=== PATIENT | female | born 1975 | race Caucasian/White ===

== ENCOUNTER 2017-01-28 17:55 | Emergency (ER) | payer OTHER ==
--- NOTE | 2017-01-28 18:04 | PDOC ---
Rapid Medical Evaluation Time Seen by Provider: 01/28/17 18:01 Medical Evaluation: Allergies Allergy/AdvReac Type Severity Reaction Status Date / Time No Known Allergies Allergy Verified 01/28/17 18:01 01/28/17 18:01 I have performed a brief in-person evaluation of this patient. The patient presents with a chief complaint of: Fever w/ body aches and dysuria x 5 days. Received 1 dose of ceftriaxone yesterday by Dr Carty and sent home w / cipro but unable to tolerate meds 2/2 n/v. H/o recurrent UTIs, pyelo (decker- sensitive ucx in 2015 on chart review) Pertinent physical exam findings:Febrile w/ ?R CVAT I have ordered the following: cbc/chem/ua/ucx/bld cx/serum preg/tylenol The patient will proceed to the ED for further evaluation. 01/28/17 18:05
[2017-01-28] MEDS ORDERED: ACETAMINOPHEN 325 MG TABLET (FP) PO ONE (18:05)
[2017-01-28 18:06] VITALS: BP 109/68; PULSE 112; TEMP 101.7; BMI 22.4
[2017-01-28] MEDS ORDERED: ACETAMINOPHEN 325 MG TABLET (FP) ONE (18:27)
[2017-01-28 18:47] LABS: URINE APPEARANCE CLEAR; URINE BILIRUBIN NEGATIVE (NEGATIVE); URINE BLOOD 3+ (NEGATIVE); URINE COLOR LTYELLOW; URINE GLUCOSE (UA) NEGATIVE (NEGATIVE); URINE KETONE 1+ (NEGATIVE); URINE NITRITE NEGATIVE (NEGATIVE); URINE UROBILINOGEN NEGATIVE mg/dL (0.2-1.0)
[2017-01-28 18:48] LABS: URINE MUCUS RARE; URINE PROTEIN 1+ (NEGATIVE); URINE RBC 6 /hpf (0-3); URINE WBC 5 /hpf (3-5)
[2017-01-28] MEDS ORDERED: SODIUM CHLORIDE 1,000 ML IV STA (18:58)
[2017-01-28] MEDS ORDERED: ONDANSETRON 4 MG/2 ML VIAL IVPUSH ONE (18:58)
--- NOTE | 2017-01-28 19:07 | PDOC ---
History of Present Illness - History of Present Illness Initial Comments: 01/28/17 19:21 The patient is a 41 year old female, with a significant past medical history of UTIs, who presents to the emergency department with fever, nausea, vomiting since this morning. Patient was experiencing painful urination for 5 days. She saw her PCP yesterday who gave her anitbiotics. She came in today because she has been experiencing fever and vomit. LMP 01/16/17. She denies recent fevers, chills, headache or dizziness. She denies recent nausea, vomit, diarrhea or constipation. She denies recent dysuria, frequency, urgency or hematuria. She denies recent chest pain or shortness of breath. Allergies: NKA Past surgical history: 2 c-sections, appendectomy Social history: Nonsmoker. Denies EtOH use and recreational drug use. Primary Care Physician: Dr. Papito Carty <Yaneli Johnson - Last Filed: 01/28/17 19:21> <Sade Hunter - Last Filed: 01/28/17 21:25> - General Chief Complaint: SIRS, Suspected/Possible Stated Complaint: FEVER/VOMITING Time Seen by Provider: 01/28/17 18:01 Past History <Yaneli Johnson - Last Filed: 01/28/17 19:21> - Past Medical History Anemia: No Asthma: No Cancer: No Cardiac Disorders: No CVA: No COPD: No CHF: No DVT: No Dementia: No Diabetes: No GI Disorders: Yes (ulcer) Disorders: Yes (recurrent UTI,pyelonephritis) HTN: No Hypercholesterolemia: No Liver Disease: No Seizures: No Thyroid Disease: No - Surgical History Abdominal Surgery: No Appendectomy: Yes Cardiac Surgery: No Cholecystectomy: No Lung Surgery: No Neurologic Surgery: No Orthopedic Surgery: No - Suicide/Smoking/Psychosocial Hx Smoking History: Never smoked Have you smoked in the past 12 months: No Information on smoking cessation initiated: No Hx Alcohol Use: No Drug/Substance Use Hx: No Substance Use Type: None Hx Substance Use Treatment: No <Sade Hunter - Last Filed: 01/28/17 21:25> - Past Medical History Allergies/Adverse Reactions: Allergies Allergy/AdvReac Type Severity Reaction Status Date / Time No Known Allergies Allergy Verified 01/28/17 18:01 Home Medications: Ambulatory Orders Ondansetron [Zofran *Odt*] 8 mg SL BID PRN #14 od.tablet 01/28/17 Review of Systems - Review of Systems Comments:: 01/28/17 19:21 CONSTITUTIONAL: Present: fever Absent: fever, no chills, no fatigue EYES: Absent: visual changes ENT: Absent: ear pain, no sore throat CARDIOVASCULAR: Absent: chest pain, no palpitations RESPIRATORY: Absent: cough, no SOB GI: Present: nausea, vomit, flank pain. Absent: abdominal pain, no constipation, no diarrhea GENITOURINARY: Absent: dysuria, no frequency, no hematuria MUSCULOSKELETAL: Absent: back pain, no arthralgia, no myalgia SKIN: Absent: rash NEURO: Absent: headache <Yaneli Johnson - Last Filed: 01/28/17 19:21> *Physical Exam - Vital Signs Last Vital Signs Temp Pulse Resp BP Pulse Ox 101.7 F H 112 H 18 109/68 100 01/28/17 18:01 01/28/17 18:01 01/28/17 18:01 01/28/17 18:01 01/28/17 18:01 - Physical Exam Comments: 01/28/17 19:22 GENERAL: Well-appearing, well-nourished. No apparent distress. HEENT: Normocephalic, atraumatic. PERRL, EOM intact. CARDIOVASCULAR: Normal S1, S2. Regular rate and rhythm. PULMONARY: Clear to auscultation bilaterally. BACK: Right CVA tenderness. ABDOMEN: Soft, non-distended, non-tender. EXTREMITIES: Normal ROM in all four extremities. No gross deformities. SKIN: Warm, dry. No rash NEUROLOGICAL: No focal neurological deficits. <Yaneli Johnson - Last Filed: 01/28/17 19:21> - Vital Signs Last Vital Signs Temp Pulse Resp BP Pulse Ox 101.7 F H 112 H 18 109/68 100 01/28/17 18:01 01/28/17 18:01 01/28/17 18:01 01/28/17 18:01 01/28/17 18:01 <Sade Hunter - Last Filed: 01/28/17 21:25> ED Treatment Course - LABORATORY CBC & Chemistry Diagram: 01/28/17 19:05 01/28/17 18:20 - ADDITIONAL ORDERS Additional order review: Laboratory Results 01/28/17 01/28/17 18:39 18:20 Serum , Qual Negative Urine Color Ltyellow Urine Appearance Clear Urine pH 6.0 Ur Specific [place] 1.008 Urine Protein 1+ H Urine Glucose (UA) Negative Urine Ketones 1+ H Urine Blood 3+ H Urine Nitrite Negative Urine Bilirubin Negative Urine Urobilinogen Negative Urine WBC (Auto) 5 Urine RBC (Auto) 6 Ur Epithelial Cells Rare Urine Mucus Rare 01/28/17 01/28/17 19:05 18:20 RBC 4.04 Cancelled MCV 83.6 Cancelled MCHC 33.5 Cancelled RDW 13.8 Cancelled MPV 8.0 Cancelled Neutrophils % 81.9 D Cancelled Lymphocytes % 6.9 L D Cancelled Monocytes % 11.1 H Cancelled Eosinophils % 0.0 D Cancelled Basophils % 0.1 Cancelled - Medications Given in the ED: ED Medications Discontinued Medications Generic Name Dose Route Start Last Admin Trade Name Freq PRN Reason Stop Dose Admin Acetaminophen 650 mg 01/28/17 18:05 01/28/17 18:06 Tylenol - PO 01/28/17 18:06 650 mg ONCE ONE Administration <Yaneli Johnson - Last Filed: 01/28/17 19:21> - LABORATORY CBC & Chemistry Diagram: 01/28/17 19:05 01/28/17 18:20 - ADDITIONAL ORDERS Additional order review: Laboratory Results 01/28/17 01/28/17 18:39 18:20 Serum , Qual Negative Urine Color Ltyellow Urine Appearance Clear Urine pH 6.0 Ur Specific [place] 1.008 Urine Protein 1+ H Urine Glucose (UA) Negative Urine Ketones 1+ H Urine Blood 3+ H Urine Nitrite Negative Urine Bilirubin Negative Urine Urobilinogen Negative Urine WBC (Auto) 5 Urine RBC (Auto) 6 Ur Epithelial Cells Rare Urine Mucus Rare 01/28/17 18:20 RBC Cancelled MCV Cancelled MCHC Cancelled RDW Cancelled MPV Cancelled Neutrophils % Cancelled Lymphocytes % Cancelled Monocytes % Cancelled Eosinophils % Cancelled Basophils % Cancelled - Medications Given in the ED: ED Medications Discontinued Medications Generic Name Dose Route Start Last Admin Trade Name Freq PRN Reason Stop Dose Admin Acetaminophen 650 mg 01/28/17 18:05 01/28/17 18:06 Tylenol - PO 01/28/17 18:06 650 mg ONCE ONE Administration <Sade Hunter - Last Filed: 01/28/17 21:25> *DC/Admit/Observation/Transfer - Attestations Scribe Attestion: 01/28/17 19:23 Documentation prepared by Yaneli Johnson, acting as medical device sales for Sade Hunter MD. <Yaneli Johnson - Last Filed: 01/28/17 19:21> <Sade Hunter - Last Filed: 01/28/17 21:25> Diagnosis at time of Disposition: Pyelonephritis - Discharge Dispostion Disposition: HOME Condition at time of disposition: Stable - Prescriptions Prescriptions: Ondansetron [Zofran *Odt*] 8 mg SL BID PRN #14 od.tablet PRN Reason: Nausea And/Or Vomiting - Referrals Referrals: Papito Carty MD [Primary Care Provider] - - Patient Instructions Printed Discharge Instructions: DI for Kidney Infection Additional Instructions: Please continue to take all your antibiotics until done Please pick up attendant your prescriptions at the [facility] pharmacy Follow-up with your primary doctor Return for any worsening symptoms - Post Discharge Activity
[2017-01-28 19:08] LABS: ALBUMIN 3.1 g/dl (3.4-5.0); ANION GAP 10 (8-16); BILIRUBIN,TOTAL 0.3 mg/dL (0.2-1.0); CO2 24 mmol/L (21-32); CREATININE 0.9 mg/dL (0.55-1.02); GLUCOSE,RANDOM 106 mg/dL (74-106); SGOT/AST 32 U/L (15-37); SGPT/ALT 115 U/L (12-78)
[2017-01-28 19:09] LABS: ALK PHOS 135 U/L (45-117)
[2017-01-28 19:12] LABS: BASOPHIL 0.1 % (0-2.0); MCHC 33.5 g/dl (32.0-36.0); MEAN CELL VOLUME 83.6 fl (80-96); NEUTROPHILS 81.9 % (42.8-82.8); PLATELET COUNT 225 K/MM3 (134-434); RDW 13.8 % (11.6-15.6); WHITE BLOOD COUNT 10.7 K/mm3 (4.0-10.0)
[2017-01-28] MEDS ORDERED: METOCLOPRAMIDE HCL INJECTION 10 MG/2 ML VIAL ONE (19:16)
[2017-01-28] MEDS ORDERED: ONDANSETRON 4 MG/2 ML VIAL ONE (19:17)
[2017-01-28] MEDS ORDERED: METOCLOPRAMIDE HCL INJECTION 10 MG/2 ML VIAL IVPB STA (19:19)
[2017-01-28] MEDS ORDERED: LEVOFLOXACIN 500 MG IVPB 500 MG/100 ML BAG IVPB ONE ×2 (21:18→21:41)
[2017-01-28 22:39] LABS: URINE LEUK ESTERASE Negative (NEGATIVE)
== END 2017-01-28 22:03 | disposition home or self-care (01) ==
LOC: JER 17:55
PROC: 3E03329 Introduction of Other Anti-infective into Peripheral Vein, Percutaneous Approach (ICD-10-PCS; principal; 2017-01-28)
PROC: 3E033GC Introduction of Other Therapeutic Substance into Peripheral Vein, Percutaneous Approach (ICD-10-PCS; 2017-01-28)
PROC: 3E0337Z Introduction of Electrolytic and Water Balance Substance into Peripheral Vein, Percutaneous Approach (ICD-10-PCS; 2017-01-28)
DX: N12 Tubulo-interstitial nephritis, not specified as acute or chronic (principal)
CPT/HCPCS: 36415; 80053; 81003; 81015; 83605; 84703; 85025; 87040; 87086; 99284-25

== ENCOUNTER 2017-03-26 09:15 | Day surgery (SDC) | payer OTHER ==
--- NOTE | 2017-03-06 10:34 | HP ---
DATE OF ADMISSION: 03/26/2017 REASON FOR ADMISSION: Gallbladder polyps. BRIEF HISTORY: This is a 41-year-old female who approximately 4 years ago was noted to have a gallbladder polyp. The patient has been followed medically, and now, the patient is noted to have 2 gallbladder polyps. The largest is approximately 4 mm in size. The patient states she has episodic abdominal pain, more so after her most recent infection in January (urosepsis with 105 fever). Since that event, the patient states she eats and now has cramping abdominal discomfort, followed by diarrhea. She has had no blood per rectum, and since her treatment of the urosepsis, she has had no fever, chills, or sweats. Patient now wishes to have her gallbladder removed for fear of progression of polyps as well as developing new polyps. She does not wish to have these followed medically at this time. Patient denies a change in stool color, urine color. Abdominal pain as described. PAST MEDICAL HISTORY: Significant for peptic ulcer disease, gastritis, history of gastric ulcers. She has no coronary artery disease, hypertension, or diabetes. Patient is noted to have a smaller right kidney with 20% function versus the left which is 80% function. This is chronic. PAST SURGICAL HISTORY: and an appendectomy. ALLERGIES: MUSHROOMS. MEDICATIONS: Omeprazole. SOCIAL HISTORY: Patient does not smoke and drinks socially. PHYSICAL EXAMINATION: Lungs: Clear. Heart: Regular rate and rhythm. Abdomen: Soft, nontender, and nondistended. She has a well-healed scar as well as a recently healed right lower quadrant appendectomy scar. She has no right upper quadrant tenderness. No CVA tenderness on the right side. IMPRESSION/PLAN: Gallbladder polyps. This is a 41-year-old female with a history of having gallbladder polyps. The largest is 4 mm. Given the size, there is no surgical indication for removal, and this was clearly explained to the patient. However, the patient does not wish to undergo medical followup and management at this time and, therefore, has opted for definitive surgical management with cholecystectomy. patient understands that given her weird and unusual history of having abdominal pain after eating, followed by diarrhea, this most likely is not related to the gallbladder nor is the gallbladder polyps and removal of the gallbladder will not cure this (this only really started after the incident of the urosepsis, and therefore, most likely, will clear up with time). She understands this very clearly and wants to proceed with a laparoscopic cholecystectomy so as not to have any medical followup for gallbladder polyps. The indications, alternatives, and complications discussed. Questions answered. We will plan to obtain written consent the day of surgery. Yao GUO [id number] cc: Papito Carty MD
[2017-03-24 17:42] VITALS: BMI 22.6
[2017-03-26] MEDS ORDERED: ERTAPENEM SODIUM 1 GM VIAL ONE (10:25)
[2017-03-26] MEDS ORDERED: ONDANSETRON 4 MG/2 ML VIAL IVPUSH PRN (10:25)
[2017-03-26] MEDS ORDERED: LACTATED RINGERS SOLUTION 1,000 ML IV SCH (10:30)
[2017-03-26] MEDS ORDERED: MIDAZOLAM HCL 2 MG/2 ML SINGLE DOSE VIAL ONE (10:55)
[2017-03-26] MEDS ORDERED: PROPOFOL 20 ML ONE ×3 (10:57→12:08)
[2017-03-26] MEDS ORDERED: KETOROLAC TROMETHAMINE 30 MG/1 ML VIAL ONE (10:58)
[2017-03-26] MEDS ORDERED: DEXAMETHASONE SOD PHOSPHATE 4 MG/1 ML VIAL ONE (10:58)
[2017-03-26] MEDS ORDERED: LIDOCAINE HCL/PF 2% SDV 5ML VIAL ONE ×2 (10:58→12:48)
[2017-03-26] MEDS ORDERED: ROCURONIUM BROMIDE 50 MG/5 ML VIAL ONE (10:59)
[2017-03-26] MEDS ORDERED: GLYCOPYRROLATE 0.2 MG/1 ML VIAL ONE (11:28)
[2017-03-26] MEDS ORDERED: NEOSTIGMINE METHYLSULFATE 0.5 MG/ML - 10 ML MDV ONE (11:28)
[2017-03-26] MEDS ORDERED: SODIUM CHLORIDE 0.9% P/F 10 ML VIAL IJ ONE ×2 (11:41→12:36)
[2017-03-26] MEDS ORDERED: ERTAPENEM SODIUM 1 GM VIAL IVPB ONE (11:51)
[2017-03-26] MEDS ORDERED: METOPROLOL TARTRATE 5 MG/5 ML VIAL ONE (11:52)
[2017-03-26] MEDS ORDERED: NALOXONE HCL 0.4 MG/ML VIAL ONE (12:36)
[2017-03-26] MEDS ORDERED: ACETAMINOPHEN 325 MG TABLET (FP) PO PRN (13:09)
[2017-03-26] MEDS ORDERED: morphine CARPU-JECT 4 MG/1 ML DISP.SYRIN IVPB PRN (13:09)
[2017-03-26] MEDS ORDERED: D5-1/2NS+20 MEQ KCL - 20 MEQ/1,000 ML INFUS.BAG IV SCH (13:15)
[2017-03-26] MEDS: HYDROmorphone HCL CARPU-JECT 1 MG/1 ML DISP.SYRIN IVPUSH PRN ×2 (13:40→13:50)
[2017-03-26] MEDS ORDERED: HYDROmorphone HCL CARPU-JECT 2 MG/1 ML DISP.SYRIN ONE (13:42)
[2017-03-26] MEDS ORDERED: MORPHINE SULFATE 10 MG/1 ML *VIAL IVPUSH PRN (16:34)
[2017-03-26] MEDS ORDERED: HYDROmorphone HCL CARPU-JECT 2 MG/1 ML DISP.SYRIN IVPUSH PRN (16:35)
[2017-03-26] MEDS: oxyCODONE HCL 5 MG TABLET PO PRN (21:52)
--- NOTE | 2017-03-26 23:53 | OP ---
DATE OF OPERATION: 03/26/2017 PREOPERATIVE DIAGNOSIS: Gallbladder polyps. POSTOPERATIVE DIAGNOSIS: Gallbladder polyps. PROCEDURE: Laparoscopic cholecystectomy, peritoneal lavage. SURGEON: Ayad Natarajan M.D. DATA SCIENTIST: Wilfrid Reyes M.D. ANESTHESIA: Gurpreet Piña M.D. (general) ESTIMATED BLOOD LOSS: Minimal. SPECIMEN: Gallbladder. INDICATION FOR PROCEDURE: This is a 41-year-old female with gallbladder polyps. She wished to have the gallbladder removed and not undergo medical followup. DESCRIPTION OF PROCEDURE: Patient is identified, and appropriately positioned on operating room table. After placement of general anesthesia, the abdomen was prepped and draped in the usual sterile fashion with Chloraprep. An infraumbilical incision was made, deepened through the subcutaneous tissue. The fascia was divided sharply, the peritoneum incised, and under direct vision a Veress needle followed by structural needle placed. Also under direct vision the other ports were placed. The gallbladder identified in the right upper quadrant. There was omentum plastered to the body and dome of the gallbladder consistent with chronic cholecystitis. The omentum was bluntly. The gallbladder itself was reflected over the dome in standard fashion. Going from lateral to medial, the neck and infundibulum of the gallbladder identified, followed by the cystic duct. The cystic duct circumferentially isolated, clipped and then divided. Cystic artery identified more medially and posteriorly. This was subsequently clipped and divided. Some of the omentum plastered to the gallbladder was clipped and then divided in similar fashion. The gallbladder itself was removed from liver bed with electrocautery. Prior to complete removal, the liver bed was irrigated, the operative field examined, noted to be hemostatic. The specimen was taken off the liver bed, placed in an Endocatch bag and brought out through the umbilical port site. The right upper quadrant was copiously irrigated with warm saline. The irrigant retrieved noted to be clear. The operative field examined once again, noted to be hemostatic. Ports removed. Port sites hemostatic. The fascia at the umbilical port site were reapproximated with interrupted 0 Vicryl suture. All skin closed with 4-0 subcuticular Biosyn followed by Dermabond. At the conclusion of this case, sponge and needle counts were correct. ATTESTATION: Brief operative note handwritten on the preprinted form. [facility] queried prior to giving any narcotics. Yao GUO [id number] cc: Papito Carty M.D. MTDCiaran
[2017-03-27 06:39] VITALS: PULSE 74
[2017-03-27] MEDS: oxyCODONE HCL 5 MG TABLET PO PRN (08:37)
[2017-03-27 09:53] VITALS: BP 100/57; TEMP 98.1
[2017-03-27] MEDS ORDERED: ENOXAPARIN NA (PORCINE) 40 MG/0.4 ML DISP.SYRIN SQ SCH (10:00)
[2017-03-27] MEDS ORDERED: PANTOPRAZOLE SODIUM 40 MG VIAL IVPUSH SCH (10:00)
--- NOTE | 2017-04-02 14:18 | PATH ---
Surgical Pathology Report Patient Name: JODY RESENDIZ [facility]. Rec. #: [id number] /Age/Gender: 1975 (Age: 41) / F Account: [id number] Location: AMBULATORY SURG Taken: 03/26/2017 Received: 03/26/2017 Reported: 04/02/2017 Physicians: Ayad Natarajan Specimen(s) Received GALLBLADDER Clinical History Gallbladder polyp Final Diagnosis GALLBLADDER, LAPAROSCOPIC CHOLECYSTECTOMY: CHRONIC CHOLECYSTITIS AND CHOLESTEROLOSIS. Electronically Signed Marian Samuel M.D. Gross Description Received in formalin, labeled "gallbladder," is a 5.8 x 2.0 x 1.5 cm. gallbladder with a 0.2 cm. in length portion of cystic duct attached. The outer surface is cano-pink and varies from smooth to shaggy. The lumen contains cano, tenacious bile. No choleliths are identified. The mucosa is cano with a 0.1 cm in greatest dimension yellow, possible polyp. The fundus of the gallbladder displays submucosal cystic spaces. The wall of the gallbladder ranges from 0.1-0.3 cm. in thickness. Senior Technical Editor sections are submitted in 2 cassettes as follows: 1-cystic duct margin, gallbladder fundus and direct sales representative mucosa; 2-possible mucosal polyp. 03/26/201703/26/2017
== END 2017-03-27 11:53 | disposition home or self-care (01) ==
LOC: JASUSAT 09:15 → J8W 14:45 → JASUSAT 03-27 11:53
PROVIDERS: ATTEND Surgery
PROC: 0FT44ZZ Resection of Gallbladder, Percutaneous Endoscopic Approach (ICD-10-PCS; principal; 2017-03-26 10:30)
DX: K82.4 Cholesterolosis of gallbladder (principal)
CPT/HCPCS: 84703; 88304-TC; 94010; 94760